=== PATIENT | female | born 1995 | race Caucasian/White ===

== ENCOUNTER 2017-05-10 18:09 | Emergency (ER) | payer OTHER, MEDICAID ==
[~2017-05-10] VITALS: Ht 157.5 cm; Wt 55.8 kg
[~2017-05-10 18:09] MED LIST: ACETAMINOPHEN-1 EAC1 PO; ATIVAN0.5 M1 PO; BACTRIM DS TAB1 EACH PO; BUSPIRONE HCL5 MG PO; BUTALB-APAP-CA1 EACH PO; CEPHALEXIN 500500 M3 PO; CLARITIN10 MG; CLONAZEPAM0.5 MG PO; HYDROCODONE-AP1 EAC6 PO; HYDROXYZINE HCL25 M1 PO; IBUPROFEN 600600 M1 PO; IBUPROFEN 800800 M1 PO; KEFLEX500 MG PO; LEXAPRO 10 MG T10 M1 PO; MACROBID 100 M100 M2 PO; NOHOMEMEDICATIONS; NORCO 5-325 TA1 EACH PO; ONDANSETRON HCL4 M2 PO; PHENAZOPYRIDIN200 M2 PO; PHENERGAN 25 MG25 M1 PO; POTASSIUM20 PO; PROAIR HFA8.5 GM; PROZAC10 MG PO; SINGULAIR 10 MG10 M1 PO; TRAMADOL; TRAZODONE HCL50 MG PO; VISTARIL 25 MG25 M1 PO; ZOFRAN ODT4 MG PO
[2017-05-10 19:26] LABS: HEMATOCRIT 38.2 % (37.0-47.0); HEMOGLOBIN 12.9 gm/dL (12.0-15.0); MCH 29.9 pg (26.0-34.0); MCHC 33.7 g/dL (28.0-37.0); MCV 88.7 fL (80.0-100.0); MPV 7.7 fl. (7.2-11.1); NUCLEATED RBCS 0 /100WBC; PLATELET COUNT* 296 thou/uL (150-400); RBC 4.31 mil/uL (4.20-5.00); WBC 15.7 thou/uL (4.0-11.0)
[2017-05-10 19:27] LABS: URINE BILIRUBIN NEGATIVE (Negative); URINE BLOOD 3+ (Negative); URINE CLARITY CLOUDY; URINE COLOR YELLOW; URINE GLUCOSE-RANDOM NEGATIVE (Negative); URINE KETONES NEGATIVE (Negative); URINE LEUKOCYTES-REFLEX NEGATIVE (Negative); URINE NITRITE-REFLEX NEGATIVE (Negative); URINE PROTEIN TRACE (Negative); URINE SPECIFIC GRAVITY 1.015 (1.005-1.030); URINE UROBILINOGEN 0.2 E.U./dl (0.2-1.0)
[2017-05-10 19:34] LABS: MUCUS 0-3 Light strn/LPF (None Seen); SQUAMOUS >10 Many /LPF (0-3)
[2017-05-10 19:35] LABS: CASTS None Seen /LPF (None Seen); URINE WBC-REFLEX 6-15 Few /HPF (0-5)
[2017-05-10 19:36] LABS: AMORPHOUS URATES Many /LPF (None Seen); BACTERIA-REFLEX 1-9 Few /HPF (None Seen); URINE RBC 3-10 Few /HPF (0-2)
[2017-05-10 19:41] LABS: ABSOLUTE BASOPHILS 0.2 thou/uL (0.0-0.2); ABSOLUTE LYMPHOCYTES 1.3 thou/uL (0.8-5.3); ABSOLUTE NEUTROPHILS 14.3 thou/uL (1.6-8.1); METAMYELOCYTES 1 %
[2017-05-10 19:42] LABS: PLATELET ESTIMATE ADEQUATE
[2017-05-10 19:46] LABS: CALCIUM 9.1 mg/dL (8.5-10.1); CREATININE 0.7 mg/dL (0.6-1.3); POTASSIUM 4.4 mmol/L (3.5-5.1)
[2017-05-10 19:56] LABS: AMP/METHAMP POSITIVE (Negative); BARBITURATES Negative (Negative); BENZODIAZEPINES Negative (Negative); COCAINE Negative (Negative); METHADONE Negative (Negative); OPIATES Negative (Negative); PCP Negative (Negative); THC POSITIVE (Negative)
[2017-05-10] MEDS ORDERED: MACROBID 100 M100 M2 PO (20:42)
[2017-05-10] MEDS ORDERED: ONDANSETRON HCL4 M2 PO (20:42)
[2017-05-10 20:55] VITALS: BP 94/47
[2017-05-10 21:02] LABS: INFLUENZA A ANTIGEN None Detected (None Detect); INFLUENZA B ANTIGEN None Detected (None Detect)
== END 2017-05-10 20:56 | disposition home or self-care (01) ==
LOC: M.ERS 18:09
PROVIDERS: Nurse Practitioner
DX: N39.0 Urinary tract infection, site not specified (principal); G89.29 Other chronic pain; M54.9 Dorsalgia, unspecified; M25.559 Pain in unspecified hip; F43.10 Post-traumatic stress disorder, unspecified; F31.9 Bipolar disorder, unspecified; F41.9 Anxiety disorder, unspecified; F17.210 Nicotine dependence, cigarettes, uncomplicated

== ENCOUNTER 2018-08-17 19:59 | Emergency (ER) | payer MEDICAID ==
[~2018-08-17] VITALS: Ht 157.5 cm; Wt 75.3 kg
[2018-08-17 21:25] VITALS: BP 111/79
== END 2018-08-17 21:25 | disposition home or self-care (01) ==
LOC: M.ERS 19:59
DX: G43.909 Migraine, unspecified, not intractable, without status migrainosus (principal); F17.210 Nicotine dependence, cigarettes, uncomplicated; M54.9 Dorsalgia, unspecified; G89.29 Other chronic pain; M25.552 Pain in left hip; F31.9 Bipolar disorder, unspecified; F41.9 Anxiety disorder, unspecified

== ENCOUNTER 2018-11-14 21:42 | Emergency (ER) | payer MEDICAID ==
[~2018-11-14] VITALS: Ht 157.5 cm; Wt 62.1 kg
[2018-11-14] MEDS ORDERED: NORCO 5-325 TA1 EAC1 PO (21:54)
[2018-11-14] MEDS ORDERED: IBUPROFEN 600600 M1 PO (21:54)
[2018-11-14] MEDS ORDERED: KEFLEX500 M1 PO (23:48)
[2018-11-15 00:12] VITALS: BP 122/87
== END 2018-11-15 00:13 | disposition home or self-care (01) ==
LOC: M.ERS 21:42
DX: S50.312A Abrasion of left elbow, initial encounter (principal); L08.89 Other specified local infections of the skin and subcutaneous tissue; M25.511 Pain in right shoulder; R03.0 Elevated blood-pressure reading, without diagnosis of hypertension; F17.210 Nicotine dependence, cigarettes, uncomplicated; M54.9 Dorsalgia, unspecified; G89.29 Other chronic pain; M25.552 Pain in left hip; F31.9 Bipolar disorder, unspecified; F41.9 Anxiety disorder, unspecified; V89.2XXA Person injured in unspecified motor-vehicle accident, traffic, initial encounter; Y92.89 Other specified places as the place of occurrence of the external cause; Y93.89 Activity, other specified; Y99.8 Other external cause status

== ENCOUNTER 2019-01-14 20:11 | Emergency (ER) | payer MEDICAID ==
[~2019-01-14] VITALS: Ht 157.5 cm; Wt 54.4 kg
[~2019-01-14 20:11] MED LIST changes: +KEFLEX500 M1 PO; +NORCO 5-325 TA1 EAC1 PO
[2019-01-15 00:20] VITALS: BP 96/47
== END 2019-01-15 00:23 | disposition home or self-care (01) ==
LOC: M.ERS 20:11
DX: G43.909 Migraine, unspecified, not intractable, without status migrainosus (principal); F31.9 Bipolar disorder, unspecified; F41.9 Anxiety disorder, unspecified; G89.29 Other chronic pain; F17.210 Nicotine dependence, cigarettes, uncomplicated

== ENCOUNTER 2019-03-03 05:01 | Emergency (ER) | payer MEDICAID ==
[~2019-03-03] VITALS: Ht 157.5 cm; Wt 63.5 kg
[2019-03-03] MEDS ORDERED: ZOFRAN ODT4 MG DISSOLVE (05:11)
[2019-03-03] MEDS ORDERED: BUTALB-APAP-CA1 EACH PO (05:11)
[2019-03-03 05:33] LABS: URINE BILIRUBIN NEGATIVE (Negative); URINE BLOOD 2+ (Negative); URINE CLARITY CLEAR; URINE COLOR YELLOW; URINE GLUCOSE-RANDOM NEGATIVE (Negative); URINE KETONES NEGATIVE (Negative); URINE LEUKOCYTES-REFLEX NEGATIVE (Negative); URINE NITRITE-REFLEX NEGATIVE (Negative); URINE PROTEIN NEGATIVE (Negative); URINE SPECIFIC GRAVITY 1.015 (1.005-1.030); URINE UROBILINOGEN 0.2 E.U./dl (0.2-1.0)
[2019-03-03 05:44] LABS: AMP/METHAMP Negative (Negative); BARBITURATES Negative (Negative); BENZODIAZEPINES Negative (Negative); COCAINE Negative (Negative); METHADONE Negative (Negative); OPIATES Negative (Negative); PCP Negative (Negative); THC POSITIVE (Negative)
[2019-03-03 05:49] LABS: BACTERIA-REFLEX >30 Many /HPF (None Seen); CASTS None Seen /LPF (None Seen); MUCUS 4-6 Moderate strn/LPF (None Seen); SQUAMOUS 4-10 Moderate /LPF (0-3); URINE RBC 3-10 Few /HPF (0-2); URINE WBC-REFLEX 0-5 Rare /HPF (0-5)
[2019-03-03 05:50] LABS: CRYSTALS None Seen /LPF (None Seen)
[2019-03-03] MEDS ORDERED: FLAGYL500 M1 PO (06:10)
[2019-03-03 06:24] VITALS: BP 112/62
== END 2019-03-03 06:26 | disposition home or self-care (01) ==
LOC: M.ERS 05:01
PROVIDERS: Emergency Medicine
DX: N76.0 Acute vaginitis (principal); B96.89 Other specified bacterial agents as the cause of diseases classified elsewhere; N94.6 Dysmenorrhea, unspecified; F41.9 Anxiety disorder, unspecified; F31.9 Bipolar disorder, unspecified; G89.29 Other chronic pain; F17.210 Nicotine dependence, cigarettes, uncomplicated; Z91.018 Allergy to other foods; Z79.899 Other long term (current) drug therapy

== ENCOUNTER 2019-04-01 19:27 | Emergency (ER) | payer MEDICAID ==
[~2019-04-01] VITALS: Ht 157.5 cm; Wt 63.5 kg
[~2019-04-01 19:27] MED LIST changes: +FLAGYL500 M1 PO; +ZOFRAN ODT4 MG DISSOLVE
[2019-04-01 20:24] LABS: URINE BILIRUBIN NEGATIVE (Negative); URINE BLOOD 3+ (Negative); URINE CLARITY CLEAR; URINE COLOR YELLOW; URINE GLUCOSE-RANDOM NEGATIVE (Negative); URINE KETONES NEGATIVE (Negative); URINE LEUKOCYTES-REFLEX 1+ (Negative); URINE PROTEIN NEGATIVE (Negative); URINE UROBILINOGEN 0.2 E.U./dl (0.2-1.0)
[2019-04-01 20:26] LABS: URINE NITRITE-REFLEX POSITIVE (Negative)
[2019-04-01 20:33] LABS: AMP/METHAMP Negative (Negative); BARBITURATES Negative (Negative); BENZODIAZEPINES Negative (Negative); COCAINE Negative (Negative); METHADONE Negative (Negative); OPIATES Negative (Negative); PCP Negative (Negative); THC POSITIVE (Negative)
[2019-04-01 20:50] LABS: CASTS None Seen /LPF (None Seen); SQUAMOUS >10 Many /LPF (0-3)
[2019-04-01 20:52] LABS: URINE WBC-REFLEX >25 Many /HPF (0-5)
[2019-04-01 20:53] LABS: BACTERIA-REFLEX >30 Many /HPF (None Seen); CRYSTALS None Seen /LPF (None Seen); URINE RBC 3-10 Few /HPF (0-2)
[2019-04-01 21:01] LABS: CALCIUM 9.1 mg/dL (8.5-10.1); CREATININE 0.9 mg/dL (0.6-1.3); POTASSIUM 3.5 mmol/L (3.5-5.1)
[2019-04-01] MEDS ORDERED: MACROBID 100 M100 M1 PO (21:22)
[2019-04-01 21:45] VITALS: BP 117/68
--- NOTE | 2019-04-02 16:13 | EKG ---
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
== END 2019-04-01 21:45 | disposition home or self-care (01) ==
LOC: M.ERS 19:27
PROVIDERS: Emergency Medicine
DX: N39.0 Urinary tract infection, site not specified (principal); R55 Syncope and collapse; G89.29 Other chronic pain; F31.9 Bipolar disorder, unspecified; F41.9 Anxiety disorder, unspecified; Z91.018 Allergy to other foods; Z79.899 Other long term (current) drug therapy

== ENCOUNTER 2019-04-24 07:13 | Emergency (ER) | payer MEDICAID ==
[~2019-04-24] VITALS: Ht 157.5 cm; Wt 56.7 kg
[~2019-04-24 07:13] MED LIST changes: +MACROBID 100 M100 M1 PO
[2019-04-24] MEDS ORDERED: VITAMIN D400 UNIT PO (07:27)
[2019-04-24] MEDS ORDERED: VITAMIN B122500 MC1 PO (07:27)
[2019-04-24 08:11] LABS: HEMATOCRIT 37.7 % (37.0-47.0); HEMOGLOBIN 12.8 gm/dL (12.0-15.0); MCH 29.6 pg (26.0-34.0); MCV 87.2 fL (80.0-100.0); MPV 8.1 fl. (7.2-11.1); RBC 4.33 mil/uL (4.20-5.00); RDW-CV 13.3 % (10.5-14.5); WBC 5.9 thou/uL (4.0-11.0)
[2019-04-24 08:17] LABS: CALCIUM 8.6 mg/dL (8.5-10.1); CREATININE 0.8 mg/dL (0.6-1.3); POTASSIUM 3.8 mmol/L (3.5-5.1)
[2019-04-24] MEDS ORDERED: NORCO 5-325 TA1 EAC1 PO (09:27)
[2019-04-24 09:39] VITALS: BP 107/63
--- NOTE | 2019-04-24 10:26 | EKG ---
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1995 Requested By: Salo Maxwell Order Number: [id number] MD: Wil Carty Measurements Intervals [place] Rate: 56 P: 39 [place]: 184 QRS: 29 QRSD: 95 T: 36 QT: 428 QTc: 414 Interpretive Statements Sinus bradycardia Atrial premature complex Compared to ECG 04/01/2019 19:45:18 Atrial premature complex(es) now present rate has slowed Electronically Signed On 04-24-2019 10:25:37 PATTERN CHART WRITER by Wil Carty [email or web address] <ELECTRONICALLY SIGNED> By: Wil Carty MD, [facility] 04/24/19 1025 0 0 Wil Carty MD, [facility] /EPI
== END 2019-04-24 09:42 | disposition home or self-care (01) ==
LOC: M.ERS 07:13
PROVIDERS: Emergency Medicine Emergency Medical Services
DX: M25.521 Pain in right elbow (principal); R55 Syncope and collapse; G89.29 Other chronic pain; F17.210 Nicotine dependence, cigarettes, uncomplicated; Z91.018 Allergy to other foods

== ENCOUNTER 2020-10-03 13:57 | Emergency (ER) | payer MEDICAID ==
[~2020-10-03] VITALS: Ht 157.5 cm; Wt 54.4 kg
[~2020-10-03 13:57] MED LIST changes: +VITAMIN B122500 MC1 PO; +VITAMIN D400 UNIT PO
[2020-10-03 14:05] VITALS: BP 120/61
[2020-10-03] MEDS ORDERED: NAPROSYN500 MG PO (14:50)
== END 2020-10-03 14:59 | disposition home or self-care (01) ==
LOC: M.ERS 13:57
DX: S90.31XA Contusion of right foot, initial encounter (principal); G89.29 Other chronic pain; F17.210 Nicotine dependence, cigarettes, uncomplicated; Z91.018 Allergy to other foods; W22.8XXA Striking against or struck by other objects, initial encounter; Y93.89 Activity, other specified; Y92.89 Other specified places as the place of occurrence of the external cause; Y99.8 Other external cause status

== ENCOUNTER 2020-10-25 07:28 | Emergency (ER) | payer MEDICAID ==
[~2020-10-25] VITALS: Ht 162.6 cm; Wt 54.4 kg
[~2020-10-25 07:28] MED LIST changes: +NAPROSYN500 MG PO
[2020-10-25 08:09] LABS: URINE BILIRUBIN NEGATIVE (Negative); URINE BLOOD NEGATIVE (Negative); URINE CLARITY CLEAR; URINE COLOR YELLOW; URINE GLUCOSE-RANDOM NEGATIVE (Negative); URINE KETONES NEGATIVE (Negative); URINE LEUKOCYTES-REFLEX NEGATIVE (Negative); URINE NITRITE-REFLEX NEGATIVE (Negative); URINE PROTEIN NEGATIVE (Negative)
[2020-10-25] MEDS ORDERED: DOXYCYCLINE 10100 MG PO (08:30)
[2020-10-25] MEDS ORDERED: SUPRAX400 M1 PO (08:30)
[2020-10-25] MEDS ORDERED: FLAGYL500 M1 PO (08:30)
[2020-10-25 08:48] VITALS: BP 124/83
== END 2020-10-25 08:49 | disposition home or self-care (01) ==
LOC: M.ERS 07:28
PROVIDERS: Family Medicine
DX: A59.9 Trichomoniasis, unspecified (principal); F17.210 Nicotine dependence, cigarettes, uncomplicated; Z88.8 Allergy status to other drugs, medicaments and biological substances